=== PATIENT | female | born 1980 | race Two or more races ===

== ENCOUNTER 2018-05-09 00:54 | Emergency (ER) | payer MEDICAID ==
[~2018-05-09] VITALS: Ht 170.2 cm; Wt 90.7 kg
[2018-05-09 01:45] VITALS: BP 168/78
--- NOTE | 2018-05-09 01:47 | Emergency Room Report ---
History of Present Illness General Chief Complaint: Pain Source: Patient Present Illness HPI Patient presents with complaints of left knee pain Reports that he had a fall at home while playing with her child This happened 4 days ago. As the pain persisted patient presents for further evaluation Denies any pelvic pain denies any chest pain Denies any foot or ankle pain Pain is worse with ambulation better with rest Allergies: Coded Allergies: No Known Allergies (Unverified , 05/09/18) Patient History Pertinent Family History: none Now: No Reviewed Nursing Documentation: PMH: Agreed; PSxH: Agreed Nursing Documentation-PMH Past Medical History: No Stated History Review of Systems All Other Systems: negative except mentioned in HPI Physical Exam Vital Signs Date Time Temp Pulse Resp B/P (MAP) Pulse Ox O2 Delivery O2 Flow Rate FiO2 05/09/18 00:59 97.6 80 16 170/100 99 Room Air 97.5 Sp02 EP Interpretation: reviewed, normal General Appearance: well appearing, no apparent distress Head: normocephalic, atraumatic Eyes: bilateral eye PERRL, bilateral eye EOMI ENT: hearing grossly normal, normal pharynx, TMs + canals normal, uvula midline Neck: full range of motion, supple, no meningismus, no bony tend Respiratory: lungs clear, normal breath sounds, no rhonchi, no respiratory distress, no retraction, no accessory muscle use Cardiovascular #1: normal peripheral pulses, regular rate, rhythm, no edema, no gallop, no JVD, no murmur Gastrointestinal: normal bowel sounds, non tender, soft, no mass, no organomegaly, non-distended, no guarding, no hernia, no pulsatile mass, no rebound Genitourinary: no CVA tenderness Musculoskeletal: other - Abrasion to the mid patellar region, no obvious edema or ecchymosis Neurologic: oriented x3, responsive, fluorescent lamp replacer III-XII nml as tested, motor strength/ tone normal, sensory intact Psychiatric: mood/affect normal Skin: palpation normal, other - Abrasion mid patella Lymphatic: normal inspection, no adenopathy Medical Decision Making Diagnostic Impression: Primary Impression: Knee contusion ER Course Given the patient's history and presentation given the trauma x-rays were obtained no obvious acute pathology is seen patient does have an abrasion as well will have continued wound care at home and return with any changes Other X-Ray Diagnostic Results Other X-Ray Diagnostic Results : X-Ray ordered: Left knee # of Views/Limited Vs Complete: 3 View Indication: Pain EP Interpretation: Yes Interpretation: no dislocation, no soft tissue swelling, no fractures Impression: No acute disease Electronically Signed by: Mayco Pennington DO Last Vital Signs Date Time Temp Pulse Resp B/P (MAP) Pulse Ox O2 Delivery O2 Flow Rate FiO2 05/09/18 00:59 97.6 80 16 170/100 99 Room Air 97.5 Status: improved Disposition: HOME, SELF-CARE Condition: Improved Scripts Ibuprofen* (MOTRIN*) 600 Mg Tablet 600 MG ORAL Q8H PRN for For Pain, #20 TAB 0 Refills Prov: Mayco Pennington DO 05/09/18 Referrals: NOT CHOSEN [facility],REFERRING (PCP) Additional Instructions: Patient is provided with the discharge instructions notified to follow up with primary doctor in the next 2-3 days otherwise return to the er with any worsening symptoms. Please note that this report is being documented using [employer] technology. This can lead to erroneous entry secondary to incorrect interpretation by the dictating instrument. Mayco Pennington DO May 09, 2018 01:47
[2018-05-09] MEDS ORDERED: IBUPROFEN600 MG ORAL (02:00)
[2018-05-09 02:16] VITALS: BP 168/78
--- NOTE | 2018-05-09 10:29 | Diagnostic Imaging Report ---
Indication: Knee Pain 3 views of the left knee were obtained. Findings: No acute fracture, malalignment, or joint effusion are identified. Joint space is relatively well-maintained. Impression: Negative for acute injury
== END 2018-05-09 02:17 | disposition home or self-care (01) ==
LOC: EMR 01:29
DX: S80.02XA Contusion of left knee, initial encounter (principal); W19.XXXA Unspecified fall, initial encounter; Y93.89 Activity, other specified; Y92.019 Unspecified place in single-family (private) house as the place of occurrence of the external cause
CPT/HCPCS: 99283

== ENCOUNTER 2018-08-15 00:51 | Emergency (ER) | payer MEDICAID, OTHER ==
[~2018-08-15] VITALS: Ht 170.2 cm; Wt 78.9 kg
[~2018-08-15 00:51] MED LIST: IBUPROFEN600 MG ORAL
[2018-08-15 01:15] VITALS: BP 168/106
--- NOTE | 2018-08-15 01:15 | NUR ---
ED Nurse Note: pt came in due to skin rashes on lower left and right abdomen and back. pt stated she has been in a clinic and was advised to go to ed because she might have shingles. pt stated a 8/10 tingling, burning sensation on the part. pt denies taking medication. will continue to monitor.
[2018-08-15] MEDS ORDERED: LD2JL30 TOPIC (02:22)
[2018-08-15] MEDS ORDERED: ANTI-ITCH28 G1 TP (02:22)
[2018-08-15] MEDS ORDERED: Lidocaine HCl 2% Jelly 6ml Tube TOPIC ONE (02:30)
--- NOTE | 2018-08-15 02:35 | NUR ---
ED Nurse Note: pt bp 191/114. pt stated she has hx of hypertension and was not compliance with medication. ermd on bedside and ordered clonidine .1 and was carried out. will continue to monitor.
--- NOTE | 2018-08-15 02:55 | Emergency Room Report ---
History of Present Illness General Chief Complaint: Skin Rash/Abscess Source: Patient Present Illness HPI Patient is a 37-year-old female presented after increased skin rash. Patient had gradual onset of symptoms over the past few days. She reports of increased rash to her abdomen as well as her low back. Patient states that she has been using a sweat belt. She reports having increased pain to the area. Patient denies any fever. She reports having long-standing prior history of hypertension but had not been taking any medications. Patient states that she is attempting to control this naturally. She denies any difficulty breathing. Allergies: Coded Allergies: No Known Allergies (Unverified , 08/15/18) Patient History Past Medical History: see triage record Last Menstrual Period: IRREGULAR Now: No Reviewed Nursing Documentation: PMH: Agreed; PSxH: Agreed Nursing Documentation-PMH Hx Hypertension: Yes - REFUSES TO TAKE MEDS Review of Systems All Other Systems: negative except mentioned in HPI Physical Exam Vital Signs Date Time Temp Pulse Resp B/P (MAP) Pulse Ox O2 Delivery O2 Flow Rate FiO2 08/15/18 01:09 98.1 112 18 202/118 97 Room Air General Appearance: well appearing, no apparent distress, alert, GCS 15 Head: normocephalic, atraumatic ENT: hearing grossly normal, normal voice Neck: full range of motion, supple Respiratory: no respiratory distress, speaking full sentences Cardiovascular #1: normal inspection, normal peripheral pulses, regular rate, rhythm Gastrointestinal: normal inspection, normal bowel sounds, non tender, soft Musculoskeletal: normal inspection, no calf tenderness Neurologic: normal inspection, alert, oriented x3, responsive, clock maker III-XII nml as tested, motor strength/tone normal, normal gait Psychiatric: mood/affect normal Skin: other - bilateral lumbar rash, no vesicles, excoriated, abdominal rash no excoriation Medical Decision Making Diagnostic Impression: Primary Impression: Rash and nonspecific skin eruption Additional Impression: Hypertension ER Course Patient present for skin rash. Differential diagnosis includes is not limited to shingles, contact dermatitis, allergic reaction, among others. Patient has a benign exam and does not appear to require any further imaging or laboratory testing at this time. Patient was noted to have prior history of hypertension. She was given p.o. clonidine. Patient does not currently have any symptoms related to her hypertension. Patient was advised to follow-up with her primary care physician for medication adjustment for blood pressure. Patient stated that she did not want to take any blood pressure medications I advised her that complications may occur if she does not control her blood pressure more adequately.The patient is advised to follow up with primary care doctor in 2-3 days. Patient is advised to return if any worsening condition or if any changes in status that are concerning. This report is dictated with wildcraft senior mobile web developer software which may occasionally lead to discrepancies related to use of this software. Last Vital Signs Date Time Temp Pulse Resp B/P (MAP) Pulse Ox O2 Delivery O2 Flow Rate FiO2 08/15/18 01:15 98.0 78 14 168/106 99 Room Air Status: improved Disposition: HOME, SELF-CARE Condition: Stable Scripts Hydrocortisone 2% Cream (ANTI-ITCH 2% CREAM) Y Cr 28 GM TP DAILY, #28 GM Prov: Cesar Low MD 08/15/18 Lidocaine HCL 2% Jelly* (Lidocaine Jelly 2%*) 5 Ml Jel.pf.rodrigo 5 ML TOPIC DAILY for pain, #5 ML Prov: Cesar Low MD 08/15/18 Patient Instructions: Cesar Faulkner MD Aug 15, 2018 02:55
--- NOTE | 2018-08-15 03:05 | NUR ---
ED Nurse Note: pt was cleared for discharge by caro. discharge instruction and prescription explained and pt able to verbalize understanding. id band removed. pt bp 163/106. pt has no complain. pt stated she felt good now. pt left the ed with all belongings.
[2018-08-15 03:06] VITALS: BP 163/106
== END 2018-08-15 03:05 | disposition home or self-care (01) ==
LOC: EMR 01:39
DX: R21 Rash and other nonspecific skin eruption (principal); I10 Essential (primary) hypertension
CPT/HCPCS: 99283

== ENCOUNTER 2018-11-19 13:29 | Emergency (ER) | payer OTHER ==
[~2018-11-19] VITALS: Ht 170.2 cm; Wt 87.1 kg
[~2018-11-19 13:29] MED LIST changes: +ANTI-ITCH28 G1 TP; +LD2JL30 TOPIC
--- NOTE | 2018-11-19 13:43 | NUR ---
ED Nurse Note: Pt came into the Er w/ complaints of n,v,d since yesterday. Pt is also complaining of chills. Pt denies having any episodes of diarrhea today. Pt is complaining of rt shoulder pain 6/10. Non radiating. Pt has a hx of HTN but does not take any meds for it. A + O x4. Ambulatory. Skin warm to touch.
[2018-11-19 13:44] VITALS: BP 160/100
--- NOTE | 2018-11-19 14:09 | NUR ---
ED Nurse Note: Urine has been collected and sent to lab.
--- NOTE | 2018-11-19 14:16 | NUR ---
ED Nurse Note: Urine collected and sent to lab.
[2018-11-19] MEDS ORDERED: Dicyclomine HCl 10mg/5ml oral soln ORAL ONE (15:00)
[2018-11-19] MEDS ORDERED: ONDANSETRON ODT4 MG BC (15:21)
[2018-11-19] MEDS ORDERED: DICYCLOMINE HCL10 MG PO (15:21)
--- NOTE | 2018-11-19 15:21 | Emergency Room Report ---
History of Present Illness General Chief Complaint: Nausea, Vomiting, and Diarrhea Source: Patient Present Illness HPI 38-year-old female presents to the emergency department complaining of intermittent episodes of chills, sweats, nausea and vomiting since yesterday. Patient reports acute onset after eating at a topical truck for which her friend ate from as well but only diarrhea. Patient reports that she had 2 loose bowel movements this morning. Patient denies abdominal pain at this time however she states she does have intermittent cramping prior to vomiting or bowel movements. Patient denies blood in the vomit or stool she denies black tarry stool she denies recent travel. She also denies . No relieving factors at this time. Denies dizziness or syncope. Pt. reports THC use . Allergies: Coded Allergies: No Known Allergies (Unverified , 08/15/18) Patient History Past Medical History: see triage record Past Surgical History: none Pertinent Family History: none Now: No Reviewed Nursing Documentation: PMH: Agreed; PSxH: Agreed Nursing Documentation-PMH Past Medical History: No History, Except For Hx Hypertension: Yes - REFUSES TO TAKE MEDS Review of Systems All Other Systems: negative except mentioned in HPI Physical Exam Vital Signs Date Time Temp Pulse Resp B/P (MAP) Pulse Ox O2 Delivery O2 Flow Rate FiO2 11/19/18 13:35 100 20 163/106 98 Room Air 11/19/18 13:44 98.2 Sp02 EP Interpretation: reviewed, normal General Appearance: no apparent distress, alert, GCS 15, non-toxic Head: normocephalic, atraumatic Eyes: bilateral eye normal inspection, bilateral eye PERRL ENT: hearing grossly normal, normal voice Neck: full range of motion Respiratory: lungs clear, normal breath sounds, speaking full sentences Cardiovascular #1: regular rate, rhythm Gastrointestinal: normal bowel sounds, non tender, soft, no peritonitis, non- distended, no guarding Genitourinary: normal inspection, no CVA tenderness Musculoskeletal: back normal, gait/station normal, normal range of motion, non- tender Neurologic: alert, oriented x3, responsive, motor strength/tone normal, sensory intact, speech normal, grossly normal Psychiatric: judgement/insight normal Skin: normal color, no rash, warm/dry, well hydrated Medical Decision Making PA Attestation Dr. ward is my supervising Physician whom patient management has been discussed with. Diagnostic Impression: Primary Impression: Nausea, vomiting, and diarrhea ER Course 38-year-old female presents to the emergency department complaining of intermittent episodes of chills, sweats, nausea and vomiting since yesterday. Patient reports acute onset after eating at a topical truck for which her friend ate from as well but only diarrhea. Patient reports that she had 2 loose bowel movements this morning. Patient denies abdominal pain at this time however she states she does have intermittent cramping prior to vomiting or bowel movements. Patient denies blood in the vomit or stool she denies black tarry stool she denies recent travel. She also denies . No relieving factors at this time. Denies dizziness or syncope. Pt. reports THC use . Ddx considered but are not limited to GE, colitis, acute appy, SBO, Cyclical Vomiting secondary to THC, * Vital signs: pt. is afebrile, H&PE are most consistent with GE most likely viral in etiology, no evidence to suggest acute abdomen on physical exam. ORDERS: -Urine Hcg: negative ED INTERVENTIONS: -Zofran 4mg -Bentyl -Fluid Challenge-- Pt. able to tolerate oral intake of fluids. -I do not identify an emergent condition at this time. With current presentation , pt. is stable for close outpatient follow up and conservative treatment. D/ w pt. to return promptly to ED with worsening or new symptoms.- Pt. verbalizes' understanding and agreement with proposed treatment plan. DISCHARGE: At this time pt. is stable for d/c to home. Will provide printed patient care instructions, and any necessary prescriptions. Care plan and follow up instructions have been discussed with the patient prior to discharge. Labs Test 11/19/18 14:07 Urine HCG, Qualitative Negative (NEGATIVE) Last Vital Signs Date Time Temp Pulse Resp B/P (MAP) Pulse Ox O2 Delivery O2 Flow Rate FiO2 11/19/18 13:44 98.2 78 22 160/100 98 Room Air Status: improved Disposition: HOME, SELF-CARE Condition: Stable Scripts Dicyclomine Hcl* (DICYCLOMINE HCL*) 10 Mg Capsule 10 MG PO QID for 3 Days, #12 CAP Prov: Areli Bruno 11/19/18 Ondansetron Odt* (ZOFRAN ODT*) 4 Mg Tab.rapdis 4 MG BC EVERY 6 HOURS PRN for Nausea & Vomiting, #10 TAB 0 Refills Prov: Areli Bruno 11/19/18 Referrals: [facility],REFERRING (PCP) Departure Forms: Return to Work Return to Work Date: Nov 22, 2018 Work Restrictions: None Return to Full Activity: Nov 22, 2018 Patient Instructions: Food Choices to Help Relieve Diarrhea, Adult, Nausea and Vomiting, Adult, [id number] Additional Instructions: Take medications as directed. Follow up with a Primary Care Provider in 3-5 days, even if your symptoms have resolved. --Please review list of primary care clinics, if you do not already have a primary care provider Return sooner to ED if new symptoms occur, or current symptoms become worse. - Please note that this Emergency Department Report was dictated using [email or web address] helper technology software, occasionally this can lead to erroneous entry secondary to interpretation by the dictation equipment. Areli Bruno Nov 19, 2018 15:21
[2018-11-19 15:26] VITALS: BP 155/95
--- NOTE | 2018-11-19 15:27 | NUR ---
ER DISCHARGE NOTE: Patient is cleared to be discharged per ERMD, pt is aox4, on room air, with stable vital signs. pt was given dc and prescription instructions, pt was able to verbalize understanding, pt id band removed without complications. pt is able to ambulate with steady gait. pt took all belongings. Pt able to tolerate oral fluids well. No episodes of vomiting after zofran was given.
== END 2018-11-19 15:27 | disposition home or self-care (01) ==
LOC: EMR 14:37
DX: R11.2 Nausea with vomiting, unspecified (principal); R19.7 Diarrhea, unspecified; F12.90 Cannabis use, unspecified, uncomplicated; I10 Essential (primary) hypertension
CPT/HCPCS: 81025; 99283

== ENCOUNTER 2019-07-03 10:58 | Emergency (ER) | payer OTHER ==
[~2019-07-03] VITALS: Ht 170.2 cm; Wt 90.7 kg
[~2019-07-03 10:58] MED LIST changes: +DICYCLOMINE HCL10 MG PO; +ONDANSETRON ODT4 MG BC
[2019-07-03 11:05] VITALS: BP 193/117
--- NOTE | 2019-07-03 11:05 | NUR ---
ED Nurse Note: PT AMBULATED TO ED C/O HIGH BLOOD PRESSURE. PRESSURE AT BEDSIDE IS 193/117. PT STATES ONSET ON HEADACHES, NAUSEA, AND BLURRY VISION TODAY. PER PT, SHE DOES NOT TAKE MEDICATION BP MEDICATION AT HOME. PT PLACED IN GOWN AND ON MANUFACTURING LEAD.
--- NOTE | 2019-07-03 12:00 | NUR ---
ED Nurse Note: PT SENT FOR CT
[2019-07-03 12:02] LABS: ANION GAP 7 mmol/L (5-15); BLOOD UREA NITROGEN 9 mg/dL (7-18); CALCIUM 8.5 MG/DL (8.5-10.1); CARBON DIOXIDE 28 MMOL/L (21-32); CHLORIDE 105 MMOL/L (98-107); CREATININE 1.1 MG/DL (0.55-1.30); POTASSIUM 3.5 MMOL/L (3.5-5.1); SODIUM 140 MMOL/L (136-145)
[2019-07-03 12:04] LABS: BASOPHILS % (AUTO) 1.2 % (0.0-2.0); EOSINOPHILS % (AUTO) 1.3 % (0.0-3.0); HEMATOCRIT 44.9 % (37.0-47.0); HEMOGLOBIN 15.1 G/DL (12.0-16.0); LYMPHOCYTES % (AUTO) 28.4 % (20.0-45.0); MEAN CORPUSCULAR VOLUME 96 FL (80-99); MONOCYTES % (AUTO) 17.7 % (1.0-10.0); NEUTROPHILS % (AUTO) 51.5 % (45.0-75.0); PLATELET COUNT 265 K/UL (150-450); RED BLOOD COUNT 4.66 M/UL (4.20-5.40); RED CELL DISTRIBUTION WIDTH 11.9 % (11.6-14.8); WHITE BLOOD COUNT 5.6 K/UL (4.8-10.8)
[2019-07-03 12:06] LABS: ALANINE AMINOTRANSFERASE 47 U/L (12-78); ALBUMIN 3.4 G/DL (3.4-5.0); ALBUMIN/GLOBULIN RATIO 0.8 (1.0-2.7); ALKALINE PHOSPHATASE 104 U/L (46-116); ASPARTATE AMINO TRANSFERASE 27 U/L (15-37); BILIRUBIN,TOTAL 0.2 MG/DL (0.2-1.0)
--- NOTE | 2019-07-03 12:11 | NUR ---
ED Nurse Note: PT RETURNED FROM CT
--- NOTE | 2019-07-03 12:41 | Diagnostic Imaging Report ---
Indication: Headache. Hypertension Technique: Contiguous 5 mm thick transaxial imaging of the head obtained in a Siemens Sensation [address] scanner. Soft tissue and bone windows generated. Automatic Exposure Control was utilized. Total Dose length Product (DLP): [address] Dose Index Volume (CTDIvol): 62.7 mGy Comparison: none Findings: The size and configuration of the cortical sulci, basal cisterns, and ventricles are within normal limits for age. There is no mass effect, midline shift, or edema identified. There is no evidence of acute hemorrhage or abnormal intra-axial or extra-axial fluid collections. The bones and soft tissues are unremarkable. Impression: No mass effect, edema or acute bleed. The CT scanner at [facility] is accredited by the [employer] and the scans are performed using dose optimization techniques as appropriate to a performed exam including Automatic Exposure control.
[2019-07-03] MEDS ORDERED: METOPROLOL TART25 MG ORAL (12:56)
[2019-07-03 13:03] VITALS: BP 156/112
--- NOTE | 2019-07-03 13:03 | NUR ---
ER DISCHARGE NOTE: Patient is cleared to be discharged per ERMD, pt is aox4, on room air, with stable vital signs. pt was given dc and prescription instructions, pt was able to verbalize understanding, pt id band and iv site removed without complications. pt is able to ambulate with steady gait. pt took all belongings.
--- NOTE | 2019-07-03 20:24 | Emergency Room Report ---
History of Present Illness General Chief Complaint: Hypertension Source: Patient Present Illness HPI Patient is a 38-year-old female presents after increased headache and elevated blood pressure. Patient had recently been seen by her own physician. Reportedly having increased headache. History of hypertension but not currently on medications. Patient denies any vomiting. She had similar episodes in the past. Allergies: Coded Allergies: No Known Allergies (Unverified , 08/15/18) Patient History Past Medical History: see triage record Last Menstrual Period: no menses with bc Now: No Reviewed Nursing Documentation: PMH: Agreed; PSxH: Agreed Nursing Documentation-PMH Past Medical History: No History, Except For Hx Hypertension: Yes Review of Systems All Other Systems: negative except mentioned in HPI Physical Exam Vital Signs Date Time Temp Pulse Resp B/P (MAP) Pulse Ox O2 Delivery O2 Flow Rate FiO2 07/03/19 11:00 98.2 79 20 183/134 (150) 97 Room Air Sp02 EP Interpretation: reviewed, normal General Appearance: normal inspection, well appearing, no apparent distress, alert, GCS 15 Head: normocephalic, atraumatic ENT: normal ENT inspection, hearing grossly normal, normal voice Neck: normal inspection, full range of motion, supple, no bony tend Respiratory: normal inspection, lungs clear, normal breath sounds, no respiratory distress, no retraction, no wheezing Cardiovascular #1: regular rate, rhythm, no edema Gastrointestinal: normal inspection, normal bowel sounds, non tender, soft, no guarding, no hernia Genitourinary: no CVA tenderness Musculoskeletal: normal inspection, back normal, normal range of motion Neurologic: alert, motor strength/tone normal, quality assurance monitor final III-XII nml as tested, oriented x3, responsive, speech normal, normal inspection Psychiatric: normal inspection, judgement/insight normal, mood/affect normal Medical Decision Making Diagnostic Impression: Primary Impression: Hypertension ER Course Patient presented for headache. Differential diagnosis includes is not limited to hypertensive crisis, glaucoma, intracranial hemorrhage among others. Because of complexity of patient's case laboratory tests and imaging studies were ordered. Patient was noted to have some headache but does not appear to be in acute distress. She had a blood pressure elevation this improved after oral clonidine. Patient's laboratory testing was unremarkable as well as her head CT. She was advised to follow-up with primary care physician for recheck. She is given a short-term prescription for antihypertensive medications. Is advised to follow-up with her primary care physician for recheck in the next few days. Labs Test 07/03/19 11:30 White Blood Count 5.6 K/UL (4.8-10.8) Red Blood Count 4.66 M/UL (4.20-5.40) Hemoglobin 15.1 G/DL (12.0-16.0) Hematocrit 44.9 % (37.0-47.0) Mean Corpuscular Volume 96 FL (80-99) Mean Corpuscular Hemoglobin 32.4 PG (27.0-31.0) Mean Corpuscular Hemoglobin Concent 33.6 G/DL (32.0-36.0) Red Cell Distribution Width 11.9 % (11.6-14.8) Platelet Count 265 K/UL (150-450) Mean Platelet Volume 6.2 FL (6.5-10.1) Neutrophils (%) (Auto) 51.5 % (45.0-75.0) Lymphocytes (%) (Auto) 28.4 % (20.0-45.0) Monocytes (%) (Auto) 17.7 % (1.0-10.0) Eosinophils (%) (Auto) 1.3 % (0.0-3.0) Basophils (%) (Auto) 1.2 % (0.0-2.0) Sodium Level 140 MMOL/L (136-145) Potassium Level 3.5 MMOL/L (3.5-5.1) Chloride Level 105 MMOL/L (98-107) Carbon Dioxide Level 28 MMOL/L (21-32) Anion Gap 7 mmol/L (5-15) Blood Urea Nitrogen 9 mg/dL (7-18) Creatinine 1.1 MG/DL (0.55-1.30) Estimat Glomerular Filtration Rate 56.2 mL/min (>60) Glucose Level 87 MG/DL (74-106) Calcium Level 8.5 MG/DL (8.5-10.1) Total Bilirubin 0.2 MG/DL (0.2-1.0) Aspartate Amino Transf (AST/SGOT) 27 U/L (15-37) Alanine Aminotransferase (ALT/SGPT) 47 U/L (12-78) Alkaline Phosphatase 104 U/L (46-116) Troponin I 0.008 ng/mL (0.000-0.056) Total Protein 7.8 G/DL (6.4-8.2) Albumin 3.4 G/DL (3.4-5.0) Globulin 4.4 g/dL Albumin/Globulin Ratio 0.8 (1.0-2.7) Last Vital Signs Date Time Temp Pulse Resp B/P (MAP) Pulse Ox O2 Delivery O2 Flow Rate FiO2 07/03/19 13:03 98.2 81 20 156/112 99 Room Air Status: improved Disposition: HOME, SELF-CARE Condition: Stable Scripts Metoprolol Tartrate* (METOPROLOL TARTRATE*) 25 Mg Tablet 25 MG ORAL EVERY 12 HOURS, #30 TAB Prov: Cesar Low MD 07/03/19 Referrals: NON PHYSICIAN (PCP) Patient Instructions: Hypertension Additional Instructions: Follow up with your doctor for recheck and further management of blood pressure. Return if worse. Cesar Low MD Jul 03, 2019 20:24
== END 2019-07-03 13:04 | disposition home or self-care (01) ==
LOC: EMR 11:10
DX: I10 Essential (primary) hypertension (principal)
CPT/HCPCS: 36415; 70450; 80053; 84484; 85025; Z7502; 99284

== ENCOUNTER 2019-07-14 18:34 | Emergency (ER) | payer OTHER ==
[~2019-07-14] VITALS: Ht 170.2 cm; Wt 90.7 kg
[~2019-07-14 18:34] MED LIST changes: +METOPROLOL TART25 MG ORAL
[2019-07-14 18:55] VITALS: BP 180/105
--- NOTE | 2019-07-14 18:55 | NUR ---
ED Nurse Note: PT walked in to ED for c/O elevated blood pressure and headache to right latter day area. pt stated she was recently started on metroprolol but is not effective with her BP. BP via monitor is 180/105. pt is aelrt x4.
[2019-07-14] MEDS ORDERED: Metoprolol 25mg tab ONE (19:23)
[2019-07-14 19:26] VITALS: BP 182/100
--- NOTE | 2019-07-14 19:26 | NUR ---
ER DISCHARGE NOTE: Patient is cleared to be discharged per ERMD, pt is aox4, on room air, with stable vital signs. pt was given dc instructions, pt was able to verbalize understanding, pt id band removed without complications. pt is able to ambulate with steady gait. pt took all belongings.
[2019-07-14] MEDS ORDERED: Metoprolol 25mg tab ORAL ONE (19:30)
--- NOTE | 2019-07-14 21:19 | Emergency Room Report ---
History of Present Illness General Chief Complaint: Hypertension Source: Patient Present Illness HPI Patient presents with reports that she feels that her blood pressure is not being fully managed feels that her blood pressure is staying elevated She started taking medication and was provided through the ER here last Sunday and has taken the medication for the past 5 days denies any chest pain or shortness of breath denies any vomiting Patient has pain just lateral to the right [place] area Denies any visual changes denies any posterior neck pain Denies any focal weakness visual deficits Allergies: Coded Allergies: No Known Allergies (Unverified , 08/15/18) Patient History Past Medical History: see triage record Now: No Reviewed Nursing Documentation: PMH: Agreed; PSxH: Agreed Nursing Documentation-PMH Past Medical History: No History, Except For Hx Hypertension: Yes Review of Systems All Other Systems: negative except mentioned in HPI Physical Exam Vital Signs Date Time Temp Pulse Resp B/P (MAP) Pulse Ox O2 Delivery O2 Flow Rate FiO2 07/14/19 18:51 98.4 74 16 164/100 (121) 99 Room Air 07/14/19 18:55 97 Sp02 EP Interpretation: reviewed, normal General Appearance: well appearing, no apparent distress Head: normocephalic, atraumatic Eyes: bilateral eye PERRL, bilateral eye EOMI ENT: hearing grossly normal, normal pharynx, TMs + canals normal, uvula midline Neck: full range of motion, supple, no meningismus, no bony tend Respiratory: lungs clear, normal breath sounds, no rhonchi, no respiratory distress, no retraction, no accessory muscle use Cardiovascular #1: normal peripheral pulses, regular rate, rhythm, no edema, no gallop, no JVD, no murmur Gastrointestinal: normal bowel sounds, non tender, soft, no mass, no organomegaly, non-distended, no guarding, no hernia, no pulsatile mass, no rebound Musculoskeletal: normal inspection Neurologic: motor strength/tone normal, sole cutter III-XII nml as tested, oriented x3 , sensory intact, responsive Psychiatric: mood/affect normal Skin: no rash Lymphatic: normal inspection, no adenopathy Medical Decision Making Diagnostic Impression: Primary Impression: Hypertension ER Course Multiple differentials are in consideration including but not limited to cardiac , electrolyte, vascular pathology On review of medical records patient had fairly extensive work-up initiated on recent presentation kidney function is within normal limits Patient also had CT head which was normal at this time systolic blood pressure was at 164 Patient has been placed on 25 mg of metoprolol twice daily She does have room to increase this medication Patient is encouraged to keep a log twice a day in the morning and evening time To obtain a better baseline status She is also due to see her primary physician tomorrow and can safely increase The current medication as needed Patient remains neurologically intact I do not feel met criteria for repeat imaging at this time is stable for close outpatient follow-up Last Vital Signs Date Time Temp Pulse Resp B/P (MAP) Pulse Ox O2 Delivery O2 Flow Rate FiO2 07/14/19 19:26 98.5 80 18 182/100 97 Room Air 97 Status: improved Disposition: HOME, SELF-CARE Condition: Stable Referrals: NON PHYSICIAN (PCP) PMD Patient Instructions: Hypertension, [id number], Managing Your High Blood Pressure Additional Instructions: It would be recommended to keep a log of your blood pressure in the morning and afternoon time. This will be beneficial for your primary physician to review on your next visit. At this time it is also recommended for you to initiate taking the medication provided to you by your primary physician in addition to the medication provided here. Patient is provided with the discharge instructions notified to follow up with primary doctor in the next 2-3 days otherwise return to the er with any worsening symptoms. Please note that this report is being documented using [employer] technology. This can lead to erroneous entry secondary to incorrect interpretation by the dictating instrument. Mayco Pennington DO Jul 14, 2019 21:19
== END 2019-07-14 19:26 | disposition home or self-care (01) ==
LOC: EMR 19:05
DX: I10 Essential (primary) hypertension (principal)
CPT/HCPCS: 99282